=== PATIENT | female | born 1970 | race Caucasian/White ===

== ENCOUNTER → 2018-11-03 13:00 | Outpatient (CLI) | payer OTHER, SELFPAY ==
--- NOTE | 2018-11-03 | DI.US.S_ITS ---
LIMITED ULTRASOUND OF LEFT BREAST AND AXILLA: 11/03/2018 CLINICAL: Left retroareolar pain. Comparison is made to exams dated: 11/03/2018 mammogram - [facility], 12/30/2016 mammogram, 07/18/2015 mammogram, 07/18/2015 mammogram, and 12/16/2013 mammogram - [facility]. Color flow and real-time ultrasound of the left breast retroareolar and axilla regions were performed on the areas of interest. There is 0.5 cm x 0.3 cm x 0.4 cm oval mass with an indistinct margin in the left breast at 7 o'clock in the retroareolar region. This oval mass is hypoechoic. This correlates with area of clinical concern. Color flow imaging demonstrates that there is vascularity present. There also is 0.9 cm x 0.5 cm x 0.9 cm oval mass with an indistinct margin in the left breast at 5 o'clock in the retroareolar region. This oval mass is hypoechoic. Color flow imaging demonstrates that there is no vascularity present. Additionally, there is 1.5 cm x 0.7 cm x 1.1 cm oval lymph node with eccentric cortical thickening with a circumscribed margin in the left axillary tail. This oval lymph node is hypoechoic and hyperechoic but of mixed echogenicity with fatty hilum. Color flow imaging demonstrates that there is vascularity present. In addition, there is a benign bilobed oval cyst measuring up to 0.7 cm with smooth internal rodgers in the left breast at 4 o'clock middle depth. This oval cyst is anechoic with a well-defined boundary. Color flow imaging demonstrates that there is no vascularity present. IMPRESSION: SUSPICIOUS OF MALIGNANCY The 0.5 cm x 0.3 cm x 0.4 cm oval mass in the left breast at 7 o'clock in the retroareolar region is at a low suspicion for malignancy. An ultrasound guided biopsy is recommended. The 0.9 cm x 0.5 cm x 0.9 cm oval mass in the left breast at 5 o'clock in the retroareolar region is at a low suspicion for malignancy. An ultrasound guided biopsy is recommended. The 1.5 cm x 0.7 cm x 1.1 cm oval lymph node with eccentric cortical thickening in the left axillary tail is at a low suspicion for malignancy. An ultrasound guided biopsy is recommended. The oval cyst in the left breast at 4 o'clock middle depth is consistent with a simple cyst and is benign. The findings were discussed with the patient at the conclusion of the study by Dr. Holland. This exam was interpreted at Station ID: [id number]. Electronically Signed By: Shad Trejo M.D. ddp/:11/03/2018 17:22:12 letter sent: Biopsy Required Ultrasound BI-RADS: 4a Suspicious abnormality - low suspicion for malignancy
--- NOTE | 2018-11-03 | DI.MG.S_ITS ---
BILATERAL DIGITAL DIAGNOSTIC MAMMOGRAM 3D/2D WITH AUGMENTATION: 11/03/2018 CLINICAL: Left breast pain. Comparison is made to exams dated: 12/30/2016 mammogram, 07/18/2015 mammogram, and 07/18/2015 mammogram - [facility]. The tissue of both breasts is heterogeneously dense. This may lower the sensitivity of mammography. No significant masses, calcifications, or other findings are seen in either breast. IMPRESSION: INCOMPLETE: NEEDS ADDITIONAL IMAGING EVALUATION There is no abnormality seen in the left breast to correspond with the pain in the sub-areolar depth, however, ultrasound is recommended. This exam was interpreted at Station ID: [id number]. NOTE: For mammograms, a report in lay terms will be sent to the patient. Approximately 15% of breast malignancies will not be visualized mammographically. In the management of a palpable breast mass, a negative mammogram must not discourage biopsy of a clinically suspicious lesion. Electronically Signed By: Shad boyer/claribel:11/03/2018 16:10:39 letter sent: Need Ultrasound ACR BI-RADS Category 0: Incomplete [id number]
== END ==
PROVIDERS: PCP Nurse Practitioner Family; Visit Provider Nurse Practitioner Family
DX: R92.8 Other abnormal and inconclusive findings on diagnostic imaging of breast (principal); N64.4 Mastodynia; N63.24 Unspecified lump in the left breast, lower inner quadrant; N63.21 Unspecified lump in the left breast, upper outer quadrant; R59.0 Localized enlarged lymph nodes; N60.02 Solitary cyst of left breast
CPT/HCPCS: 76642; 77066; G0279